=== PATIENT | male | born 1995 ===

== ENCOUNTER 2020-10-15 19:44 | Emergency (ER) | payer SELFPAY ==
[~2020-10-15] VITALS: Ht 182.9 cm; Wt 65.9 kg
[2020-10-15 19:44] VITALS: BP 122/57
== END 2020-10-15 22:17 | disposition home or self-care (01) ==
LOC: ED 20:00
DX: S93.491A Sprain of other ligament of right ankle, initial encounter (principal); M79.89 Other specified soft tissue disorders; X58.XXXA Exposure to other specified factors, initial encounter; Y93.89 Activity, other specified; Y92.89 Other specified places as the place of occurrence of the external cause; Y99.8 Other external cause status
CPT/HCPCS: 99284